=== PATIENT | male | born 1965 | race Caucasian/White ===

== ENCOUNTER 2019-11-25 15:00 | Emergency (ER) | payer OTHER ==
[~2019-11-25] VITALS: Ht 177.8 cm; Wt 83.9 kg
[2019-11-25] MEDS ORDERED: HYDURE500 PO (15:40)
== END 2019-11-25 18:16 | disposition home or self-care (01) ==
LOC: ER 15:00
DX: M54.16 Radiculopathy, lumbar region (principal); M25.511 Pain in right shoulder; Z79.899 Other long term (current) drug therapy; V49.40XA Driver injured in collision with unspecified motor vehicles in traffic accident, initial encounter; Y92.410 Unspecified street and highway as the place of occurrence of the external cause
CPT/HCPCS: 72131; 99283-25